=== PATIENT | male | born 1985 | race Caucasian/White ===

== ENCOUNTER 2017-11-21 07:26 | Emergency (ER) | payer OTHER ==
[2017-11-21] MEDS: METOCLOPRAMIDE 10 MG INJ IV (07:49)
[2017-11-21] MEDS: KETOROLAC 30 MG INJ IV (07:49)
[2017-11-21] MEDS: SOD CHLORIDE 0.9% 1,000 ML IV (07:50)
== END 2017-11-21 09:18 | disposition home or self-care (01) ==
LOC: FTE 07:26
DX: R51 Headache (principal)
CPT/HCPCS: 96374; 96375; 99284-25; J1885